=== PATIENT | female | born 1965 | race Caucasian/White ===

== ENCOUNTER 2017-10-07 09:39 | Emergency (ER) | payer SELFPAY ==
[~2017-10-07] VITALS: Ht 152.4 cm; Wt 68.0 kg
[~2017-10-07 09:39] MED LIST: BACL10TA PO; DICL75 PO
[2017-10-07 09:50] VITALS: BP 154/85; PULSE 88; RESP 26; TEMP 98.2; O2SAT 99
[2017-10-07] MEDS ORDERED: SODIUM CHLOR 0.9% 1000 ML INJ 1,000 ML IV SCH (09:58)
[2017-10-07] MEDS ORDERED: ALUMINUM/MAGNESIUM/SIMETH 30 ML CUP PO ONE (10:00)
[2017-10-07] MEDS ORDERED: SODIUM CHLORIDE 0.9% FLUSH 10 ML FLUSH IV FLUSH PRN (10:00)
[2017-10-07] MEDS ORDERED: ONDANSETRON HCL 4 MG/2 ML VIAL IVP ONE (10:00)
[2017-10-07] MEDS ORDERED: LIDOCAINE VISCOUS 2% SOLN 15 ML UDC PO ONE (10:00)
[2017-10-07] MEDS ORDERED: PANTOPRAZOLE SODIUM 40 MG VIAL IVP ONE (10:00)
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
[2017-10-07 10:36] LABS: AUTOMATED NEUTROPHIL # 9.6 TH/MM3 (1.8-7.7); BASOPHIL # 0.1 TH/MM3 (0-0.2); BASOPHIL % 0.5 % (0.0-2.0); EOSINOPHIL % 0.2 % (0.0-4.0); HEMATOCRIT 33.8 % (35.0-46.0); HEMOGLOBIN 12.3 GM/DL (11.6-15.3); LYMPH % 12.9 % (9.0-44.0); LYMPHOCYTE # 1.5 TH/MM3 (1.0-4.8); MEAN CELL VOLUME 93.3 FL (80.0-100.0); MEAN PLATELET VOLUME 8.5 FL (7.0-11.0); MONO % 5.6 % (0.0-8.0); MONOCYTE # 0.7 TH/MM3 (0-0.9); NEUT % 80.8 % (16.0-70.0); PLATELET COUNT 206 TH/MM3 (150-450); RED BLOOD COUNT 3.62 MIL/MM3 (4.00-5.30); RED CELL DISTRIBUTION WIDTH 16.7 % (11.6-17.2); WHITE BLOOD COUNT 11.9 TH/MM3 (4.0-11.0)
[2017-10-07 10:39] LABS: MEAN CORPUSCULAR HGB CONC 36.4 % (32.0-36.0)
[2017-10-07 10:52] LABS: ALBUMIN 3.7 GM/DL (3.4-5.0); AST (GOT) 46 U/L (15-37); BICARBONATE 22.6 MEQ/L (21.0-32.0); BLOOD UREA NITROGEN 17 MG/DL (7-18); CHLORIDE 106 MEQ/L (98-107); GLOMERULAR FILTRATION RATE 89 ML/MIN (>89); GLUCOSE,RANDOM 99 MG/DL (74-106); LIPASE 139 U/L (73-393); SODIUM (NA) 137 MEQ/L (136-145)
[2017-10-07 10:53] LABS: ALT (GPT) 57 U/L (10-53)
[2017-10-07 10:55] LABS: ALKALINE PHOSPHATASE 99 U/L (45-117); TOTAL BILIRUBIN ADULT 0.7 MG/DL (0.2-1.0)
[2017-10-07] MEDS ORDERED: IOHEXOL 350 MG/ML 10 ML VIAL (for RAD DIAG) IVCONTRAST ONE (11:21)
[2017-10-07 11:23] LABS: BANDS 9 % (0-6); LYMPHOCYTES 11 % (9-44); MONOCYTES 7 % (0-8); NEUTROPHIL # MANUAL DIFF 9.8 TH/MM3 (1.8-7.7); POLYS (SEG NEUTROPHILS) 73 % (16-70)
--- NOTE | 2017-10-07 11:44 | RADRPT ---
EXAM DATE/TIME: 10/07/2017 11:17 [facility] COMPARISON: No previous studies available for comparison. INDICATIONS : Abdominal pain. IV CONTRAST: 100 cc Omnipaque 350 (iohexol) IV ORAL CONTRAST: No oral contrast ingested. RADIATION DOSE: 8.49 CTDIvol (mGy) MEDICAL HISTORY : Hypertension. Carcinoma, lung. SURGICAL HISTORY : Colon resection. Tubal ligation. section. ENCOUNTER: Initial ACUITY: 1 day PAIN SCALE: 8/10 LOCATION: abdomen TECHNIQUE: Volumetric scanning of the abdomen and pelvis was performed. Using automated exposure control and ad justment of the mA and/or kV according to patient size, radiation dose was kept as low as reasonably achievable to obtain optimal diagnostic quality images. DICOM format image data is available electro nically for review and comparison. FINDINGS: LOWER LUNGS: The visualized lower lungs are clear. LIVER: Homogeneous density without lesion. There is no dilation of the biliary tree. No calcified gallston es. SPLEEN: Normal size without lesion. PANCREAS: Within normal limits. KIDNEYS: Parapelvic cyst on the right. Normal in size and shape. There is no mass, stone or hydronephrosis. ADRENAL GLANDS: Within normal limits. VASCULAR: There is no aortic aneurysm. BOWEL/MESENTERY: Scattered diverticuli sigmoid colon ABDOMINAL WALL: Within normal limits. RETROPERITONEUM: There is no lymphadenopathy. BLADDER: No wall thickening or mass. REPRODUCTIVE: Within normal limits. INGUINAL: There is no lymphadenopathy or hernia. MUSCULOSKELETAL: Within normal limits for patient age. CONCLUSION: Negative for an acute process. Gregory Anthony MD FACR on October 07, 2017 at 11:41 Board Certified Radiologist. This report was verified electronically.
[2017-10-07 11:51] LABS: BILIRUBIN, URINE NEG (NEG); BLOOD, URINE NEG (NEG); GLUCOSE,URINE NEG (NEG); KETONE, URINE NEG (NEG); MUCUS URINE FEW /lpf (OCC); NITRITE,URINE NEG (NEG); PH, URINE 6.5 (5.0-8.5); SQUAMOUS EPITHELIAL CELL URINE <1 /hpf (0-5); URINE COLOR YELLOW (YELLW/STRAW); URINE LEUKOCYTE ESTERASE TRACE (NEG)
[2017-10-07] MEDS ORDERED: ZANT300T PO (12:04)
[2017-10-07 12:24] VITALS: BP 142/78
== END 2017-10-07 12:27 | disposition home or self-care (01) ==
LOC: NEPC 09:39
DX: R10.13 Epigastric pain (principal); R11.0 Nausea; J45.909 Unspecified asthma, uncomplicated; J44.9 Chronic obstructive pulmonary disease, unspecified; I10 Essential (primary) hypertension; Z72.0 Tobacco use
CPT/HCPCS: 74177; 80053; 81001; 83690; 85007; 85027; 96361; 96374; 96375; 99285; C9113; J2405; J7030; Q9967

== ENCOUNTER 2018-03-28 09:15 | Emergency (ER) | payer SELFPAY ==
[~2018-03-28 09:15] MED LIST changes: +ZANT300T PO
[2018-03-28 09:25] VITALS: BP 139/71; PULSE 105; RESP 16; TEMP 98.7; O2SAT 96
[2018-03-28 09:45] VITALS: BP 134/70; PULSE 102; RESP 18; O2SAT 93
[2018-03-28] MEDS ORDERED: SERO50TA PO (09:49)
[2018-03-28] MEDS ORDERED: DEPA500T PO (09:49)
[2018-03-28] MEDS ORDERED: SODIUM CHLOR 0.9% 1000 ML INJ 1,000 ML IV SCH (11:02)
[2018-03-28] MEDS ORDERED: SODIUM CHLORIDE 0.9% FLUSH 10 ML FLUSH IV FLUSH PRN (11:15)
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
[2018-03-28] MEDS ORDERED: KETOROLAC TROMETHAMINE 30 MG/ML (IVP) VIAL IV PUSH ONE (11:30)
[2018-03-28 12:09] LABS: BACTERIA, URINE MOD /hpf; BILIRUBIN, URINE NEG (NEG); BLOOD, URINE MOD (NEG); GLUCOSE,URINE NEG (NEG); KETONE, URINE NEG (NEG); MUCUS URINE FEW /lpf (OCC); NITRITE,URINE POS (NEG); SQUAMOUS EPITHELIAL CELL URINE 8 /hpf (0-5); URINE COLOR ORANGE (YELLW/STRAW); URINE LEUKOCYTE ESTERASE LARGE (NEG)
[2018-03-28 12:21] VITALS: O2SAT 97
--- NOTE | 2018-03-28 12:29 | RADRPT ---
EXAM DATE: 03/28/2018 11:56 AM EDT AGE/SEX: 53 years / Female INDICATIONS: Bilateral lower quadrant pain, difficulty urinating. CLINICAL DATA: This is the patient's initial encounter. Patient reports that signs and symptoms have been present for 2 weeks and indicates a pain score of 9/10. MEDICAL/SURGICAL HISTORY: Renal failure, acute. Carcinoma, lung. Chronic obstructive pulmonar y disease. Cardiovascular disease, hypertension, asthma. section. Tubal ligation. RADIATION DOSE: 8.94 CTDI (mGy) [place] [facility] [place] 10/07/2017. . TECHNIQUE: Multiple contiguous axial images were obtained through the abdomen. Images were obtained using multiple row detector helical technique. Using dose reduction techniques, radiation dose was ke pt as low as reasonably achievable to obtain optimal diagnostic quality images. FINDINGS: Abdomen CT: The liver, spleen, pancreas, left kidney, adrenals are unremarkable. There is a couple of tiny 2 mm s tone in the right kidney without any hydronephrosis. Extra renal pelvis is seen on the right. There i s no evidence for any appreciable pathological adenopathy, free fluid, or bowel obstruction. There i s mild infiltrate right lung base with areas of scarring in lingula and right middle lobe. Chronic va scular atherosclerotic calcifications are seen involving the aorta. Pelvic CT: There is no evidence for mass, abscess formation, or any significant adenopathy within the pelvis. T here are scattered colonic diverticuli. In the right adnexa there is a focal fat collection measures 1.9 cm probably pelvic insinuating into this location and ovarian mass is not suspected although norm al ovary is not visualized possibly due to technique. CONCLUSION: Complex tiny stones in the right kidney, otherwise essentially unremarkable. Electronically signed by: Tracy Leger MD 03/28/2018 12:28 PM EDT
[2018-03-28 12:30] VITALS: BP 122/58; PULSE 92; RESP 18; O2SAT 97
[2018-03-28] MEDS ORDERED: CIPROFLOXACIN 400 MG PREMIX 200 ML IV ONE (12:30)
[2018-03-28 12:33] LABS: AUTOMATED NEUTROPHIL # 4.3 TH/MM3 (1.8-7.7); BASOPHIL % 0.4 % (0.0-2.0); EOSINOPHIL # 0.1 TH/MM3 (0-0.4); EOSINOPHIL % 2.2 % (0.0-4.0); HEMOGLOBIN 10.5 GM/DL (11.6-15.3); LYMPH % 25.4 % (9.0-44.0); LYMPHOCYTE # 1.7 TH/MM3 (1.0-4.8); MEAN CELL VOLUME 90.2 FL (80.0-100.0); MEAN CORPUSCULAR HEMOGLOBIN 31.5 PG (27.0-34.0); MONO % 7.3 % (0.0-8.0); MONOCYTE # 0.5 TH/MM3 (0-0.9); NEUT % 64.7 % (16.0-70.0); PLATELET COUNT 147 TH/MM3 (150-450); RED BLOOD COUNT 3.33 MIL/MM3 (4.00-5.30); RED CELL DISTRIBUTION WIDTH 15.5 % (11.6-17.2); WHITE BLOOD COUNT 6.7 TH/MM3 (4.0-11.0)
[2018-03-28 12:50] LABS: ALBUMIN 3.4 GM/DL (3.4-5.0); AST (GOT) 59 U/L (15-37); BLOOD UREA NITROGEN 22 MG/DL (7-18); CALCIUM 8.7 MG/DL (8.5-10.1); CHLORIDE 109 MEQ/L (98-107); CREATININE 0.59 MG/DL (0.50-1.00); GLOMERULAR FILTRATION RATE 107 ML/MIN (>89); GLUCOSE,RANDOM 101 MG/DL (74-106); SODIUM (NA) 140 MEQ/L (136-145)
[2018-03-28 12:51] LABS: ALT (GPT) 97 U/L (10-53)
[2018-03-28 12:53] LABS: ALKALINE PHOSPHATASE 95 U/L (45-117); TOTAL BILIRUBIN ADULT 0.7 MG/DL (0.2-1.0); TOTAL PROTEIN 7.7 GM/DL (6.4-8.2)
[2018-03-28] MEDS ORDERED: CIPR250T52 PO (13:04)
[2018-03-28] MEDS ORDERED: PHEN0.4T PO (13:04)
[2018-03-28 13:24] VITALS: RESP 18
[2018-03-28 14:43] VITALS: BP 124/64
== END 2018-03-28 14:44 | disposition home or self-care (01) ==
LOC: NEPC 09:15
DX: N30.01 Acute cystitis with hematuria (principal); B96.20 Unspecified Escherichia coli [E. coli] as the cause of diseases classified elsewhere; R10.30 Lower abdominal pain, unspecified; R00.0 Tachycardia, unspecified; I10 Essential (primary) hypertension; J44.9 Chronic obstructive pulmonary disease, unspecified; F31.9 Bipolar disorder, unspecified; F41.9 Anxiety disorder, unspecified; F17.210 Nicotine dependence, cigarettes, uncomplicated; Z85.118 Personal history of other malignant neoplasm of bronchus and lung; Z87.442 Personal history of urinary calculi; Z88.5 Allergy status to narcotic agent; Z79.899 Other long term (current) drug therapy
CPT/HCPCS: 74176; 80053; 81001; 83605; 85025; 85610; 85730; 87077; 87086; 87186; 96361; 96365; 96375; 99284; J0744; J1885; J7030